=== PATIENT | male | born 1955 | race Caucasian/White ===

== ENCOUNTER 2016-09-26 06:16 | Inpatient (IN) | payer MEDICAID, OTHER ==
[~2016-09-26] VITALS: Ht 175.3 cm; Wt 103.2 kg
[2016-09-26] MEDS ORDERED: ALBUTEROL SULF 2.5 MG/0.5ML(0.5%) NEB SOLN NEB ONE ×2 (06:30→08:00)
[2016-09-26] MEDS ORDERED: IPRATROPIUM BROM 0.5 MG/2.5ML INH SOL NEB ONE ×2 (06:30→08:00)
[2016-09-26 07:15] LABS: Basophils # (auto) 0 uL; Basophils % (auto) 0.6 % (0.0-2.0); Eosinophils # (auto) 0.1 uL; Eosinophils % (auto) 1.3 % (0.0-7.0); Hematocrit 42.6 % (41.0-53.0); Lymphocytes # (auto) 1.1 uL; Lymphocytes % (auto) 11.7 % (10.0-50.0); Mean Corpuscular Hemoglobin 30.9 pg (28.0-32.0); Mean Corpuscular Hgb Conc. 32.9 g/dL (32.0-36.0); Mean Corpuscular Volume 93.9 fL (80.0-100.0); Mean Platelet Volume 7.6 fL (7.4-10.4); Monocytes # (auto) 0.7 uL; Monocytes % (auto) 7.4 % (0.0-12.0); Neutrophils # (auto) 7.1 uL; Platelet Count (auto) 227 10^3/uL (140-450); Red Cell Distribution Width 13.1 % (11.6-16.0)
[2016-09-26 07:38] LABS: Albumin 3.2 g/dL (3.4-5.0); Alkaline Phosphatase 82 U/L (45-117); Anion Gap 7 (5-15); Aspartate Aminotransferase 45 U/L (15-37); Bilirubin, Total 0.3 mg/dL (0.2-1.0); Blood Urea Nitrogen 14 mg/dL (7-18); Calcium 8.1 mg/dL (8.5-10.1); Carbon Dioxide 28 mmol/L (21-32); Chloride 110 mmol/L (98-107); GFR African American 148 mL/min; GFR Non-African American 123 mL/min; Glucose 149 mg/dL (74-106); Magnesium 2.4 mg/dL (1.6-2.6); Sodium 145 mmol/L (136-145); Total Protein 6.6 g/dL (6.4-8.2)
[2016-09-26] MEDS ORDERED: methylPREDNISolone SOD SUCC 125 MG/2 ML VL IV ONE (08:00)
[2016-09-26 08:03] LABS: INR 0.96 (0.9-1.15); Prothrombin Time 9.9 sec (9.37-12.3)
[2016-09-26 08:41] LABS: B-Type Natriuretic Peptide 34.2 pg/mL (0-100); Temperature: 21.9 C (20.0-25.0)
[2016-09-26] MEDS ORDERED: FUROSEMIDE 40 MG/4 ML VIAL IV ONE (12:15)
[2016-09-26] MEDS ORDERED: AZITHROMYCIN 500MG/D5W 250ML 250 ML IV ONE (12:15)
[2016-09-26] MEDS ORDERED: DEXTROSE (50%) 50ML SYRG IV PRN (12:30)
[2016-09-26] MEDS ORDERED: TEMAZEPAM 15 MG CAP PO PRN (12:30)
[2016-09-26] MEDS ORDERED: ALBUTEROL SULF 2.5 MG/0.5ML(0.5%) NEB SOLN NEB PRN (12:30)
[2016-09-26] MEDS ORDERED: OSELTAMIVIR 75 MG CAP PO ONE (12:30)
[2016-09-26] MEDS ORDERED: MORPHINE SULF INJ 2 MG/ML SYRINGE 1ML IV PRN (12:30)
[2016-09-26] MEDS ORDERED: HYDROcodone-ACET 5/325MG TAB PO PRN (12:30)
[2016-09-26] MEDS ORDERED: LACTULOSE 20Gm/30ML SOLN PO PRN (12:30)
[2016-09-26] MEDS ORDERED: PROMETHAZINE HCL 25 MG/ML 1ML IV PRN (12:30)
[2016-09-26] MEDS ORDERED: NITROGLYCERIN 0.4 MG SL TAB SL PRN (12:30)
[2016-09-26] MEDS ORDERED: ACETAMINOPHEN 500 MG TAB PO PRN (12:30)
[2016-09-26] MEDS ORDERED: LORazepam 0.5 MG TAB PO PRN (12:30)
[2016-09-26] MEDS ORDERED: LEVOFLOXACIN 500MG 100 ML IV ONE (12:45)
[2016-09-26] MEDS ORDERED: ENOXAPARIN SOD 40 MG/0.4 ML SYRINGE SC ONE (12:45)
[2016-09-26] MEDS: SODIUM CHLOR 0.9% PF (SALINE LOCK) 10ML VIAL IV SCH ×2 (14:05→21:40)
[2016-09-26] MEDS ORDERED: ALBU2TAB4 PO (14:57)
[2016-09-26] MEDS ORDERED: NAS17NSL (14:57)
[2016-09-26] MEDS ORDERED: METH4TAB7 PO (14:57)
[2016-09-26] MEDS ORDERED: AZIT250T5 PO (14:57)
[2016-09-26] MEDS ORDERED: LISI-646 PO (14:57)
[2016-09-26 16:57] VITALS: BP 152/94
[2016-09-26] MEDS: methylPREDNISolone SOD SUCC 40 MG/ML VL IV SCH ×2 (17:47→23:20)
[2016-09-26] MEDS: MORPHINE SULF INJ 2 MG/ML SYRINGE 1ML IV PRN ×2 (17:54→23:20)
[2016-09-26] MEDS: IPRATROPIUM BROM 0.5 MG/2.5ML INH SOL NEB SCH (18:00)
[2016-09-26] MEDS: ACCU-CHEK COMFORT CURVE STRIP VI SCH ×2 (18:00→23:20)
[2016-09-26] MEDS: ALBUTEROL SULF 2.5 MG/0.5ML(0.5%) NEB SOLN NEB SCH (18:00)
[2016-09-26 20:00] VITALS: BP 139/85
[2016-09-26 21:29] VITALS: BP 152/94
[2016-09-26 21:32] VITALS: BP 139/85
[2016-09-26] MEDS: FAMOTIDINE 20 MG TAB PO SCH (21:41)
[2016-09-26] MEDS ORDERED: OSELTAMIVIR 75 MG CAP PO SCH (22:00)
[2016-09-27] MEDS: ALBUTEROL SULF 2.5 MG/0.5ML(0.5%) NEB SOLN NEB SCH ×3 (00:43→11:43)
[2016-09-27] MEDS: IPRATROPIUM BROM 0.5 MG/2.5ML INH SOL NEB SCH ×3 (00:43→11:43)
[2016-09-27 05:00] VITALS: BP 154/96
[2016-09-27] MEDS: ACCU-CHEK COMFORT CURVE STRIP VI SCH ×2 (05:16→11:46)
[2016-09-27] MEDS: methylPREDNISolone SOD SUCC 40 MG/ML VL IV SCH ×2 (05:16→11:38)
[2016-09-27] MEDS: SODIUM CHLOR 0.9% PF (SALINE LOCK) 10ML VIAL IV SCH (05:16)
[2016-09-27] MEDS: MORPHINE SULF INJ 2 MG/ML SYRINGE 1ML IV PRN (05:27)
[2016-09-27 08:00] VITALS: BP 125/61
[2016-09-27 09:00] VITALS: BP 156/92
[2016-09-27] MEDS: FAMOTIDINE 20 MG TAB PO SCH (09:47)
[2016-09-27] MEDS ORDERED: LEVOFLOXACIN 500MG 100 ML IV SCH (10:00)
[2016-09-27] MEDS ORDERED: ENOXAPARIN SOD 40 MG/0.4 ML SYRINGE SC SCH (10:00)
[2016-09-27] MEDS ORDERED: LISINOPRIL 20 MG TAB PO ONE (13:30)
[2016-09-27] MEDS ORDERED: methylPREDNISolone SOD SUCC 40 MG/ML VL IV SCH (22:00)
[2016-09-28] MEDS ORDERED: LISINOPRIL 20 MG TAB PO SCH (10:00)
== END 2016-09-27 14:05 | disposition left against medical advice (07) | DRG 140 ==
LOC: ER 06:24 → TELE 06:25 → TELE-WESTW 14:33 → TELE-E-ADS 14:39 → TELE-WESTW 15:14
PROVIDERS: ADMIT Internal Medicine; ATTEND Internal Medicine
DX: J44.0 Chronic obstructive pulmonary disease with (acute) lower respiratory infection (principal); J96.21 Acute and chronic respiratory failure with hypoxia; Z86.74 Personal history of sudden cardiac arrest; J44.1 Chronic obstructive pulmonary disease with (acute) exacerbation; E44.1 Mild protein-calorie malnutrition; I10 Essential (primary) hypertension; J45.909 Unspecified asthma, uncomplicated; K21.9 Gastro-esophageal reflux disease without esophagitis; I25.10 Atherosclerotic heart disease of native coronary artery without angina pectoris; F17.210 Nicotine dependence, cigarettes, uncomplicated; J20.9 Acute bronchitis, unspecified; Z86.73 Personal history of transient ischemic attack (TIA), and cerebral infarction without residual deficits; Z82.49 Family history of ischemic heart disease and other diseases of the circulatory system; Z95.5 Presence of coronary angioplasty implant and graft; Z71.6 Tobacco abuse counseling; Z68.33 Body mass index [BMI] 33.0-33.9, adult
CPT/HCPCS: 36415; 71010; 71020; 80053; 82962; 83036; 83735; 83880; 84484; 85025; 85379; 85610; 85730; 87070; 87077; 87081; 87186; 87205; 87400; 94640; 94644; 96365; 96366; 96372; 96375; J1956